=== PATIENT | male | born 1965 | race Caucasian/White ===

== ENCOUNTER 2016-10-28 11:31 | Emergency (ER) | payer OTHER ==
[2016-10-28 14:49] LABS: HEMOGLOBIN 14.8 gm/dl (14.0-17.5); RED BLOOD COUNT 4.85 M/UL (4.20-5.50); WHITE BLOOD COUNT 12.2 K/UL (4.5-11.0)
[2016-12-29] MEDS ORDERED: BUTRANS1 EAC1 TD (08:56)
[2016-12-29] MEDS ORDERED: FLEXERIL 10 MG10 MG PO (08:57)
[2016-12-29] MEDS ORDERED: NEURONTIN 400400 MG PO (08:57)
[2016-12-29] MEDS ORDERED: ZOFRAN ODT 4 MG4 MG PO (08:58)
[2016-12-29] MEDS ORDERED: PRILOSEC OTC20 MG PO (08:59)
[2016-12-29] MEDS ORDERED: ROPINIROLE HCL0.5 MG PO (09:00)
[2016-12-29] MEDS ORDERED: TRAMADOL HCL50 MG PO (09:01)
[2016-12-29] MEDS ORDERED: AMBIEN CR12.5 MG PO (09:01)
== END 2016-10-28 16:41 | disposition home or self-care (01) ==
LOC: ER1 11:31
PROVIDERS: Student in an Organized Health Care Education/Training Program
DX: N28.9 Disorder of kidney and ureter, unspecified (principal); G89.29 Other chronic pain; M54.9 Dorsalgia, unspecified; M54.2 Cervicalgia; Z79.899 Other long term (current) drug therapy
CPT/HCPCS: 36415; 80053; 81001; 85025; 96361; 96374; 96375; 96376; 99284; J1885; J2405; J7030

== ENCOUNTER → 2016-12-29 | Day surgery (SDC) | payer OTHER ==
[~2016-12-29] MED LIST: AMBIEN CR12.5 MG PO; BUTRANS1 EAC1 TD; FLEXERIL 10 MG10 MG PO; NEURONTIN 400400 MG PO; PRILOSEC OTC20 MG PO; ROPINIROLE HCL0.5 MG PO; TRAMADOL HCL50 MG PO; ZOFRAN ODT 4 MG4 MG PO
== END | disposition home or self-care (01) ==
LOC: OR 07:51
PROVIDERS: Surgery
PROC: 0DBP8ZX Excision of Rectum, Via Natural or Artificial Opening Endoscopic, Diagnostic (ICD-10-PCS; 2016-12-29)
PROC: 0DBG8ZX Excision of Left Large Intestine, Via Natural or Artificial Opening Endoscopic, Diagnostic (ICD-10-PCS; 2016-12-29)
PROC: 0DBN8ZX Excision of Sigmoid Colon, Via Natural or Artificial Opening Endoscopic, Diagnostic (ICD-10-PCS; principal; 2016-12-29 10:00)
DX: D12.5 Benign neoplasm of sigmoid colon (principal); D12.4 Benign neoplasm of descending colon; K62.89 Other specified diseases of anus and rectum; K61.1 Rectal abscess; M19.90 Unspecified osteoarthritis, unspecified site; M50.30 Other cervical disc degeneration, unspecified cervical region; M51.36 Other intervertebral disc degeneration, lumbar region; K21.9 Gastro-esophageal reflux disease without esophagitis; E78.5 Hyperlipidemia, unspecified; G25.81 Restless legs syndrome; Z87.442 Personal history of urinary calculi; Z88.8 Allergy status to other drugs, medicaments and biological substances; Z79.899 Other long term (current) drug therapy; Z90.49 Acquired absence of other specified parts of digestive tract
CPT/HCPCS: J7120